=== PATIENT | female | born 1955 | race African-American/Black ===

== ENCOUNTER → 2017-09-16 | Outpatient (CLI) | payer MEDICARE, OTHER ==
[2017-09-16 12:01] LABS: ADD MAN DIFF? NO
[2017-09-16 12:05] LABS: BASO # 0.1 x10^3/uL (0.0-0.2); BASO % 1 % (0-3); EOS # 0.1 x10^3/uL (0.0-0.7); EOS % 2 % (0-3); HEMATOCRIT 39.3 % (36.0-47.0); HEMOGLOBIN 13.3 g/dL (12.0-15.5); LYMPH # 2.2 x10^3/uL (1.0-4.8); LYMPH % 49 % (24-48); MEAN CORPUSCULAR HEMOGLOBIN 28 pg (25-35); MEAN CORPUSCULAR HGB CONC 34 g/dL (31-37); MEAN CORPUSCULAR VOLUME 81 fL (79-100); MONO # 0.4 x10^3/uL (0.0-1.1); MONO % 8 % (0-9); NEUT # 1.9 x10^3uL (1.8-7.7); NEUT % 41 % (31-73); PLATELET COUNT 286 x10^3/uL (140-400); RED BLOOD COUNT 4.83 x10^6/uL (3.50-5.40); RED CELL DISTRIBUTION WIDTH 14.2 % (11.5-14.5); WHITE BLOOD COUNT 4.6 x10^3/uL (4.0-11.0)
[2017-09-16 12:14] LABS: ALBUMIN 3.6 g/dL (3.4-5.0); ANION GAP 8 (6-14); BLOOD UREA NITROGEN 11 mg/dL (7-20); CALCIUM 8.9 mg/dL (8.5-10.1); CARBON DIOXIDE 28 mmol/L (21-32); CHLORIDE 105 mmol/L (98-107); CREATININE 0.9 mg/dL (0.6-1.0); GFR 77.5; GLUCOSE 131 mg/dL (70-99); SODIUM 141 mmol/L (136-145)
== END | disposition home or self-care (01) ==
LOC: SURGPAT 10:52
DX: Z01.818 Encounter for other preprocedural examination (principal)
CPT/HCPCS: 36415; 80048; 82040; 85025

== ENCOUNTER → 2017-09-20 | Day surgery (SDC) | payer MEDICARE, OTHER ==
[~2017-09-20] MED LIST: DEXAMETHASONE SOD PHOS 20 MG/5 ML VIAL.; GLYCOPYRROLATE 1 MG/5 ML VIAL.; LIDOCAINE 1% PF 2 ML VIAL. ID; LIDOCAINE 2% PF Vial for OR 5 ML VIAL.; NEOSTIGMINE METHYLSULFATE 5 MG/5 ML SYRINGE.; ONDANSETRON PF 4 MG/2 ML VIAL.; ONDANSETRON PF 4 MG/2 ML VIAL. IV; PROCHLORPERAZINE 10 MG/2 ML VIAL. IV; PROPOFOL 20 ML IV; ROCURONIUM 50 MG/5 ML VIAL.; fentaNYL PF VIAL 100 MCG/2 ML VIAL; fentaNYL PF VIAL 100 MCG/2 ML VIAL IV
[2017-09-20] MEDS: IV RINGERS,LACTATED 1000ML 1,000 ML IV ×2 (09:35→12:03)
[2017-09-20 09:46] LABS: POC GLUCOSE 119 mg/dL (70-99)
[2017-09-20] MEDS: BUPIVACAINE-EPI 0.25%-1:200000 50 ML VIAL. (11:12)
[2017-09-20] MEDS: fentaNYL PF VIAL 100 MCG/2 ML VIAL IV (12:04)
[2017-09-20] MEDS: oxyCODONE/APAP 5/325 1 TAB TABLET PO (12:50)
== END | disposition home or self-care (01) ==
LOC: SURG 08:01
DX: K43.0 Incisional hernia with obstruction, without gangrene (principal); I10 Essential (primary) hypertension; G47.30 Sleep apnea, unspecified; Z87.19 Personal history of other diseases of the digestive system; E66.9 Obesity, unspecified; Z68.35 Body mass index [BMI] 35.0-35.9, adult; K21.9 Gastro-esophageal reflux disease without esophagitis; E11.9 Type 2 diabetes mellitus without complications; F41.9 Anxiety disorder, unspecified; F32.9 Major depressive disorder, single episode, unspecified; Z98.51 Tubal ligation status; M79.7 Fibromyalgia; M19.90 Unspecified osteoarthritis, unspecified site; Z98.890 Other specified postprocedural states; Z90.49 Acquired absence of other specified parts of digestive tract; Z96.652 Presence of left artificial knee joint; Z87.891 Personal history of nicotine dependence; D64.9 Anemia, unspecified; Z88.5 Allergy status to narcotic agent; Z98.1 Arthrodesis status; Z80.3 Family history of malignant neoplasm of breast; Z83.3 Family history of diabetes mellitus; Z82.49 Family history of ischemic heart disease and other diseases of the circulatory system; Z79.84 Long term (current) use of oral hypoglycemic drugs; Z79.899 Other long term (current) drug therapy
CPT/HCPCS: 49561; 82962; 88302; J0690; J1100; J2405; J2704; J2710; J3010; J3490

== ENCOUNTER → 2020-01-12 | Outpatient (CLI) | payer MEDICARE, OTHER ==
[2017-09-20 13:57] VITALS: BP 130/75
[~2020-01-12] MED LIST changes: +AMIT10TA PO; +AMIT50TA PO; +BENA40TA15 PO; +CHOL500050 PO; -DEXAMETHASONE SOD PHOS 20 MG/5 ML VIAL.; +DOCU50CA9 PO; -GLYCOPYRROLATE 1 MG/5 ML VIAL.; -LIDOCAINE 1% PF 2 ML VIAL. ID; -LIDOCAINE 2% PF Vial for OR 5 ML VIAL.; +METF-658 PO; +METO-247 PO; +METO25TA2 PO; -NEOSTIGMINE METHYLSULFATE 5 MG/5 ML SYRINGE.; -ONDANSETRON PF 4 MG/2 ML VIAL.; -ONDANSETRON PF 4 MG/2 ML VIAL. IV; +OXYC1TAB15 PO; +PANT20TA2 PO; +PANT40TA77 PO; +PARO40TA61 PO; -PROCHLORPERAZINE 10 MG/2 ML VIAL. IV; -PROPOFOL 20 ML IV; -ROCURONIUM 50 MG/5 ML VIAL.; +TRIA80OI TP; +VENL75CA PO; -fentaNYL PF VIAL 100 MCG/2 ML VIAL; -fentaNYL PF VIAL 100 MCG/2 ML VIAL IV
--- NOTE | 2020-01-12 14:06 | EKG ---
[facility] [address] [place] [address] Test Date: 2020-01-12 Test Time: 14:00:52 Pat Name: SHRUTHI RAGSDALE Department: Room: Gender: F Box Icer: JOHN Lee : 1955 Requested By: JOHN HUNT Order Number: [id number] Reading MD: Duke Ayers MD Measurements Intervals Elida Rate: 70 P: 28 LA: 174 QRS: -34 QRSD: 98 T: 36 QT: 404 QTc: 439 Interpretive Statements SINUS RHYTHM ABNORMAL LEFT AXIS DEVIATION LAFB Electronically Signed On 01-16-2020 11:04:11 CDT by Duke Ayers MD
[2020-01-12 14:08] LABS: BASO # 0.1 x10^3/uL (0.0-0.2); BASO % 1 % (0-3); EOS # 0.1 x10^3/uL (0.0-0.7); EOS % 2 % (0-3); HEMATOCRIT 38.4 % (36.0-47.0); LYMPH # 2.4 x10^3/uL (1.0-4.8); LYMPH % 48 % (24-48); MEAN CORPUSCULAR HEMOGLOBIN 28 pg (25-35); MEAN CORPUSCULAR HGB CONC 34 g/dL (31-37); MEAN CORPUSCULAR VOLUME 82 fL (79-100); MONO # 0.4 x10^3/uL (0.0-1.1); MONO % 7 % (0-9); NEUT # 2.2 x10^3/uL (1.8-7.7); NEUT % 42 % (31-73); PLATELET COUNT 300 x10^3/uL (140-400); RED BLOOD COUNT 4.69 x10^6/uL (3.50-5.40); RED CELL DISTRIBUTION WIDTH 13.6 % (11.5-14.5); WHITE BLOOD COUNT 5.1 x10^3/uL (4.0-11.0)
[2020-01-12 14:42] LABS: BILIRUBIN,URINE NEGATIVE (NEG); COLOR,URINE RED; NITRITE,URINE NEGATIVE (NEG); PROTEIN,URINE NEGATIVE (NEG-TRACE)
[2020-01-12 14:46] LABS: ALBUMIN 3.4 g/dL (3.4-5.0); ALBUMIN/GLOBULIN RATIO 0.8 (1.0-1.7); CALCIUM 8.3 mg/dL (8.5-10.1); POTASSIUM 4.2 mmol/L (3.5-5.1); TOTAL BILIRUBIN 0.4 mg/dL (0.2-1.0); TOTAL PROTEIN 7.8 g/dL (6.4-8.2)
[2020-01-12 15:15] LABS: CLARITY,URINE HAZY
[2020-01-12 15:16] LABS: RBC,URINE TNTC /HPF (0-2); SQUAMOUS EPITHELIAL CELL,UR MOD /LPF
[2020-01-12 15:17] LABS: BACTERIA,URINE FEW /HPF (0-FEW); WBC,URINE RARE /HPF (0-4)
--- NOTE | 2020-01-12 16:39 | RAD ---
EXAM: CHEST PA LATERAL INDICATION: Reason: PRE OP HYSTERECTOMY ON 01/18/20, HX HTN, DIABETES / Spl. Instructions: / History: . TECHNIQUE: PA and lateral views COMPARISON: None FINDINGS: The heart size is normal. The great vessels appear unremarkable. There is no hilar or mediastinal mass. The lungs are clear. There is no pleural effusion or pneumothorax. ACDF surgical changes in the lower cervical spine are incidentally noted. There are no acute or aggressive osseous abnormalities. IMPRESSION: No active cardiopulmonary disease. Electronically signed by: Uziel Leone MD (01/12/2020 4:36 PM) [id number]
== END ==
LOC: SURGPAT 12:50
PROVIDERS: ATTEND Obstetrics & Gynecology
DX: Z01.812 Encounter for preprocedural laboratory examination (principal); I10 Essential (primary) hypertension; E11.9 Type 2 diabetes mellitus without complications; R94.31 Abnormal electrocardiogram [ECG] [EKG]; Z20.828 Contact with and (suspected) exposure to other viral communicable diseases
CPT/HCPCS: 71046; 80053; 81001; 85025; 87086; 93005; U0003

== ENCOUNTER 2020-01-18 06:10 | Observation (INO) | payer MEDICARE, OTHER ==
[2020-01-18] VITALS (8 sets, daily range): BP systolic 114–183; BP diastolic 59–92
[~2020-01-18] VITALS: Ht 162.6 cm; Wt 97.0 kg
[2020-01-18] MEDS ORDERED: PROCHLORPERAZINE 10 MG/2 ML VIAL. IV PRN (07:00)
[2020-01-18] MEDS ORDERED: IV RINGERS,LACTATED 1000ML 1,000 ML IV SCH (07:00)
[2020-01-18] MEDS ORDERED: fentaNYL PF VIAL 100 MCG/2 ML VIAL IV PRN (07:00)
[2020-01-18] MEDS ORDERED: ONDANSETRON PF 4 MG/2 ML VIAL. IV PRN ×2 (07:00→11:45)
[2020-01-18] MEDS: INSULIN LISPRO 100 UNIT/ML 3ML VIAL for OP,RR ONLY. SQ PRN ×2 (07:14→11:47)
[2020-01-18] MEDS ORDERED: INDIGOTINDISULFONATE SODIUM 40 MG/5 ML AMPUL. ONE (08:04)
[2020-01-18] MEDS ORDERED: BUPIVACAINE-EPI 0.5%-1:200000 MPF 30 ML VIAL. ONE (08:04)
[2020-01-18] MEDS ORDERED: ESTROGENS, CONJ VAGINAL CREAM 30GM TUBE. ONE (08:04)
[2020-01-18] MEDS ORDERED: NEOSTIGMINE METHYLSULFATE 5 MG/5 ML SYRINGE. ONE (08:13)
[2020-01-18] MEDS ORDERED: MIDAZOLAM HCL/PF 2 MG/2 ML VIAL. ONE (08:13)
[2020-01-18] MEDS ORDERED: fentaNYL PF VIAL 100 MCG/2 ML VIAL ONE ×3 (08:13→11:51)
[2020-01-18] MEDS ORDERED: DEXAMETHASONE SOD PHOS 4 MG/ML VIAL ONE (08:13)
[2020-01-18] MEDS ORDERED: SEVOFLURANE > 120 MINUTES. IH ONE (08:13)
[2020-01-18] MEDS ORDERED: PROPOFOL 10 MG/ML (20ML) VIAL. IV ONE (08:13)
[2020-01-18] MEDS ORDERED: GLYCOPYRROLATE 1 MG/5 ML VIAL. ONE (08:13)
[2020-01-18] MEDS ORDERED: ROCURONIUM 50 MG/5 ML VIAL. ONE (08:13)
[2020-01-18] MEDS ORDERED: ONDANSETRON PF 4 MG/2 ML VIAL. ONE (08:14)
[2020-01-18] MEDS ORDERED: LIDOCAINE 2% PF 5 ML VIAL. ONE (08:14)
[2020-01-18] MEDS ORDERED: ePHEDrine PF IN SALINE 50 MG/10 ML SYRINGE. IV ONE (09:06)
[2020-01-18] MEDS ORDERED: ESMOLOL 100 MG/10 ML VIAL. IVP ONE (09:38)
[2020-01-18] MEDS ORDERED: PHENYLEPHRINE in 0.9% NACL PF 1 MG/10 ML SYRINGE. IV ONE (10:28)
--- NOTE | 2020-01-18 11:39 | PDOC ---
BRIEF OPERATIVE NOTE Date: Jan 18, 2020 Pre-Op Diagnosis complex endometrial hyperplasia with atypia Post-Op Diagnosis same Procedure Performed LAVH/LSO/lysis of adhesions Surgeon Dr. Giselle Rubin Junior Accountant MICHAEL Velarde Anesthesiologist Dr. Casas Anesthesia Type: General Blood Loss 200cc IV Fluid 1L Urine Output 260cc clear via guillaume Specimens Obtained cervix, uterus, left tube and ovary Findings abdominopelvic adhesions; midline and bilateral sidewalls, some left anterior abdominal wall and near the right tube and ovary normal appendix seen mildly enlarged uterus, normal left tube and ovary normal right ovary but adhesed to side wall and right tube stuck to bowel Complications none Operative Note [id number] GISELLE RUBIN MD Jan 18, 2020 11:38
[2020-01-18] MEDS ORDERED: NALOXONE 0.4 MG/ML VIAL. IV PRN (11:45)
[2020-01-18] MEDS ORDERED: MAGNESIUM HYDROXIDE 2,400 MG/30 ML ORAL.SUSP. PO PRN (11:45)
[2020-01-18] MEDS ORDERED: 0.9 % SODIUM CHLORIDE 10 ML DISP.SYRIN. IV PRN (11:45)
[2020-01-18] MEDS ORDERED: MAG HYDROX/ALUMINUM HYD/SIMETH 30 ML ORAL.SUSP PO PRN (11:45)
[2020-01-18] MEDS ORDERED: diphenhydrAMINE HCL 25 MG CAPSULE PO PRN (11:45)
[2020-01-18] MEDS ORDERED: diphenhydrAMINE 50 MG/ML VIAL IV PRN (11:45)
[2020-01-18] MEDS ORDERED: ZOLPIDEM 5 MG TABLET. PO PRN (11:45)
[2020-01-18] MEDS ORDERED: LACTULOSE 20 GM/30 ML SOLUTION. PO PRN (11:45)
[2020-01-18] MEDS ORDERED: MORPHINE SULFATE 2 MG/ML VIAL. IV PRN (11:45)
[2020-01-18] MEDS ORDERED: SIMETHICONE 80 MG TAB.CHEW PO PRN (11:45)
[2020-01-18] MEDS ORDERED: CALCIUM CARBONATE 500 MG TAB.CHEW PO PRN (11:45)
[2020-01-18] MEDS: fentaNYL PF VIAL 100 MCG/2 ML VIAL IV PRN ×2 (11:53→12:04)
[2020-01-18] MEDS ORDERED: INSULIN LISPRO 100 UNIT/ML 3ML VIAL for OP,RR ONLY. SQ ONE ×2 (12:00)
[2020-01-18 12:08] LABS: HEMATOCRIT 36.1 % (36.0-47.0); HEMOGLOBIN 12.1 g/dL (12.0-15.5); RED BLOOD COUNT 4.36 x10^6/uL (3.50-5.40); RED CELL DISTRIBUTION WIDTH 13.6 % (11.5-14.5); WHITE BLOOD COUNT 10.7 x10^3/uL (4.0-11.0)
--- NOTE | 2020-01-18 13:05 | OP ---
DATE OF SURGERY: 01/18/2020 PREOPERATIVE DIAGNOSIS: Complex atypical endometrial hyperplasia with atypia seen on recent dilatation and curettage done for postmenopausal bleeding. POSTOPERATIVE DIAGNOSES: Complex atypical endometrial hyperplasia with atypia seen on recent dilatation and curettage done for postmenopausal bleeding plus abdominal pelvic adhesive disease. PROCEDURE: Laparoscopic-assisted vaginal hysterectomy, left salpingo-oophorectomy, and lysis of adhesions. SURGEON: John Rubin MD. DOORSHAKER: MICHAEL Velarde. ANESTHESIOLOGIST: Ja Casas MD. ANESTHESIA: General. BLOOD LOSS: 200 mL. URINE OUTPUT: 260 mL clear via Evans catheter. IV FLUIDS: 1 liter of Crystalloid. SPECIMENS: Cervix, uterus, left tube and ovary. FINDINGS: She had adhesions scattered throughout the abdomen, especially upper abdomen over her vertical midline but she actually had them on both sidewalls as well as the left anterior abdominal wall and the right tube and ovary were adhesed not just to the pelvic sidewall, but the tube was strongly adhesed to the bowel near the appendix. The uterus itself was mildly enlarged. Normal left tube and ovary. Normal appearing right ovary, just adhesed, but it was the tube that was worse on the ovary as far as the adhesions. COMPLICATIONS: None. DESCRIPTION OF PROCEDURE: This patient was taken to the operating room where general anesthesia was placed. The patient was placed in dorsal lithotomy position in Corbin stirrups. The patient's abdomen and vagina were both prepped and draped in the normal sterile fashion and a Evans catheter had been inserted under sterile technique. Upon my arrival, a timeout was performed. Once we agreed on the patient, the site, the procedure, the antibiotics, the procedure was initiated. A bivalve speculum was placed in the patient's vagina. A single-tooth tenaculum was used to grasp the anterior lip of the cervix. A 10 mL of 0.5% Marcaine with epinephrine was used to circumferentially inject around the cervix for both hemodissection and hemostatic purposes. The ValtchJoome uterine manipulator was placed through the endocervical os, locked on the single tooth tenaculum and the bivalve speculum was then removed. Top gloves were discarded and changed. Attention was then turned to the abdomen. A left upper quadrant incision was made down from her left breast, a couple of centimeters below the angle of her ribs. A curved Abril was used to dissect through the subcuticular layer to the fascia. The 5 mm Visiport was used directly enter the abdominal cavity. Opening patient pressure was 8 mmHg. Immediately to my right, I could see omental adhesions to the anterior abdominal wall. To the left, it looked clear. We were able to insufflate. We did raise the pressure to 16 or 17 to get at least some air since her opening pressure was 8-10 and her abdominal wall was so heavy and we did not get a lot of insufflation with 15, so we did increase it slightly, put her in Trendelenburg, I was able to see. The right lower quadrant was clear and transilluminate, so I got a port in there, transilluminated the abdominal wall, found an area clear of any vasculature and placed it in. I moved the camera, I was able to look at the left upper quadrant, we were lateral to the adhesions, thankfully in the midline. She had a little adhesion that was easily taken down with the LigaSure that was just omental to the left anterior abdominal wall that I could take it down and get a left lower quadrant port in as well. So once that was taken down with the LigaSure, we could see a clear filmy area between the abdominal wall and the adhesions. I took it down, it went down, we went just lateral since I was on the left upper quadrant, so I could see with the camera, so we went a little more lateral with the left lower quadrant, transilluminated the abdominal wall, found an area clear of any vasculature and put it in under direct visualization as well. A 3-4 mL of air was placed in all the trocar cuff. Once this was done, we were able to see the left tube and ovary. We found the ureter coursing very low in the pelvis, very easily identified on this side. So, staying high on the infundibulopelvic ligament just below the ovary well above the ureter, it was cauterized and cut taking it over the uterus, crossing the left round ligament and going down and staying right on the uterus, getting ready to go down and start that bladder flap. So the left side was easily done. In the right side, the cornua was easily identified. The right round ligament was identified. The right tube could be identified coming out of the uterus but it dove into the bowel. When I found the ovary, the ovary itself was normal, but it was adhesed to the sidewall and just the fimbria were stuck to it. The rest of the tube was stuck up and in the bowel. So at this point, I decided to get the round ligament on the right side, cauterized and cut it and then I crossed the uteroovarian pedicle on the right side and left it, so I could get the uterus out and go back and look at the ovary, so I crossed the right uteroovarian pedicle, the right tube and the right round, cauterizing and cutting with the LigaSure. Once this was done, the uterine vessels were obtained on this side as well. The bladder flap was created sharply, elevating it in front and using the monopolar hook to score it and pull it down easily. The bladder flap was created very nicely, then going down on the left side to the uterosacral and I did not get quite as well on the right side as this is where a lot of the distorted tissue was being pulled with the adhesions, but I was able to get the right uteroovarian pedicle, the right tube, the right round and then the vessels on the right side and the uterus was completely blanched. I was able to elevate the uterus and find some old endometriosis and scarring under the uterus and on the uterosacrals but it was clear and there were no adhesions on the posterior part of the uterus. So once the left side was taken all the way down to the uterosacrals and the uterus was free and blanched, we went below to do the vaginal hysterectomy part. So, all instruments were removed from the abdomen and attention was turned vaginally. The single tooth and Valtchev were removed. A weighted speculum was placed in the patient's vagina. Thyroid Haritha clamps were placed on the anterior and posterior lips of the cervix respectively. Once this was done, a scalpel was used to make a circumferential incision in the cervix. The cervix was elevated. The posterior cul-de-sac was sharply entered with curved Mayos and pickups with teeth and the filmy area just below posterior to the cervix. A #0 Vicryl stitch was used to secure the posterior peritoneum to the vaginal cuff. It was tagged with a curved Abril clamp. The needle was cut and passed off. The short weighted speculum was removed and replaced with the long weighted Melinda speculum in the posterior cul-de-sac. At this point, attention was turned to the anterior bladder peritoneum. It was gently teased off using the Yankauer suction tip to push up and the sharp scalpel to gently tease it up off the cervix and then an open Ray-Ree 4 x 4 was used to gently push up the anterior bladder peritoneum and the anterior cul-de-sac was digitally and bluntly entered easily and it slid up. The curved Elm Mott was placed here. At this point, curved Asim clamps x 2 were placed on the patient's left uterosacral ligament where they were doubly clamped with curved Heaneys, cut with Norwood scissors and suture ligated x 2 with 0 Vicryl. Second one was taken through the vaginal cuff securing uterosacral ligament to the vaginal cuff. It was tagged with a straight Abril clamp and the needle was cut and passed off. At this point, the right uterosacral ligaments were doubly clamped with curved Heaneys, cut with curved Norwood scissors and suture ligated x 2 with #0 Vicryl. Again, the second one was taken through the vaginal cuff securing uterosacral ligament to the vaginal cuff, tagged with a straight Abril clamp and the needle was cut and passed off. The remaining pedicle on both sides were delineated with the curved mixture and the vaginal LigaSure was used to cauterize and cut the remaining pedicles. I started on the patient's left side. It was easily taken around it, cauterized and cut. I took my finger and was able to make sure that the entire left side was free. Now on the right side, same thing, I took the mixture around the remaining pedicle, used the vaginal LigaSure to cauterize and cut. Cervix, uterus, left tube and ovary were delivered in total and passed off for permanent pathology. There were a few clots sucked out of the posterior cul-de-sac at this point. The pedicles did appear to be hemostatic and dry. The long Melinda speculum was removed and replaced with the short weighted vaginal speculum. A sponge stick was used to examine the pedicles. They did appear to be dry. A long Allis was used to go on the anterior bladder peritoneum. A full length 2-0 Vicryl was used to close the peritoneum going through the anterior bladder peritoneum, left uterosacral ligament, posterior peritoneum and right uterosacral ligament, thus closing the peritoneum in a pursestring like fashion. Once this was done, the right and left uterosacral tags were clipped as well. A full length 2-0 Vicryl was obtained and the cuff was closed in an anterior to posterior running locked fashion and tied to the posterior cuff tag. A few interrupted stitches were placed for hemostasis. The tissue was just friable, atrophic and almost just looked like wherever you touched it looked raw even from the speculums and everything. So, I did put vaginal packing with Premarin cream in once the cuff was closed. At this point, all instruments below had been correct count x 2 by OR personnel. All gloves were discarded and changed and attention was turned back above for a second look. Gas was reinsufflated. She was placed back in Trendelenburg. Overhead lights were turned off and we reexamined. The cul-de-sac was dry. It did appear that maybe over by that right tube and ovary where they were stuck and originally I tried to pull up that fimbria and realized that the tube was stuck in the bowel and we left it but there had been some bleeding but it clotted off but we looked over there very well and it was dry. I put Tisseel over after irrigation and the right and left pericolic gutters were clear. I could now even clearly see the appendix on the right side after examining that tube over there and it looked normal and not inflamed. The vaginal cuff looked good and the left pedicle where the tube and ovary were gone, so I put Tisseel over all of that and then I obtained Di and put it over where the right tube and ovary were stuck near the bowel and just over the right side in general where there were more adhesions and that stayed white and powdery without any evidence of bleeding. Once this was done ____ watched the right lower quadrant and left lower quadrant ports come out. They were deflated from the 4-5 mL of air and removed under direct visualization. Gas was released from the left upper quadrant port. Gas was taken out of this trocar and it was also removed. All 3 port sites were closed with 4-0 nylon and injected with local at the end. The patient was awakened from anesthesia and brought to recovery room in stable condition. JOHN RUBIN MD DR: Tigre JOB#: [id number] / [id number]
[2020-01-18] MEDS: oxyCODONE/APAP 5/325 1 TAB TABLET PO PRN ×2 (15:30→21:50)
[2020-01-18] MEDS ORDERED: LISINOPRIL 20 MG TABLET PO ONE (23:00)
[2020-01-18] MEDS ORDERED: metFORMIN XR 500 MG TAB.ER.24H PO ONE (23:00)
[2020-01-18] MEDS ORDERED: METOPROLOL SUCC 24HR ER 100 MG TAB.ER.24H. PO ONE (23:00)
[2020-01-19] MEDS: HYDROcodone/APAP 5/325MG 1 TAB TABLET PO PRN ×4 (02:44→15:27)
--- NOTE | 2020-01-19 06:30 | NUR ---
Discontinued Evans catheter and removed packing per MD order, Patient tolerated procedure well.
[2020-01-19 06:32] VITALS: BP 102/53
[2020-01-19] MEDS ORDERED: metFORMIN XR 500 MG TAB.ER.24H PO SCH (08:00)
[2020-01-19 08:11] LABS: CALCIUM 8.1 mg/dL (8.5-10.1); CREATININE 0.8 mg/dL (0.6-1.0); GFR 87.9; POTASSIUM 4.9 mmol/L (3.5-5.1)
[2020-01-19 08:57] VITALS: BP 95/57
[2020-01-19] MEDS ORDERED: LISINOPRIL 20 MG TABLET PO SCH (09:00)
[2020-01-19] MEDS ORDERED: METOPROLOL SUCC 24HR ER 100 MG TAB.ER.24H. PO SCH (09:00)
--- NOTE | 2020-01-19 09:02 | PDOC ---
SURGICAL PROGRESS NOTE DATE: 01/19/20 TIME: 08:45 Subjective Doing well without complaints. No n/v and tolerating regular diet. tolerating PO pain meds Vital Signs Vital Signs Date Time Temp Pulse Resp B/P (MAP) Pulse Ox O2 Delivery O2 Flow Rate FiO2 01/19/20 06:32 98.3 87 20 102/53 (69) 96 Room Air 98.3 01/19/20 03:45 2.0 I&O Intake and Output 01/19/20 07:00 Intake Total 4410 ml Output Total 2545 ml Balance 1865 ml Intake Oral 960 ml IV Total 3450 ml Output Urine Total 2345 ml Estimated Blood Loss 200 ml PATIENT HAS A GUILLAUME: No General: Alert, Oriented X3, Cooperative, No acute distress HEENT: Atraumatic Abdomen: Soft, No tenderness, Other (all port sites c/d/i) Extremities: No clubbing, No cyanosis, No edema, No tenderness/swelling Skin: No rashes, No breakdown Neuro: Normal speech Psych/Mental Status: Mental status NL, Mood NL Labs Laboratory Tests Test 01/18/20 06:54 01/18/20 11:42 01/18/20 12:00 01/19/20 05:42 Glucose (Fingerstick) 154 mg/dL (70-99) 177 mg/dL (70-99) 148 mg/dL (70-99) White Blood Count 10.7 x10^3/uL (4.0-11.0) Red Blood Count 4.36 x10^6/uL (3.50-5.40) Hemoglobin 12.1 g/dL (12.0-15.5) Hematocrit 36.1 % (36.0-47.0) Mean Corpuscular Volume 83 fL (79-100) Mean Corpuscular Hemoglobin 28 pg (25-35) Mean Corpuscular Hemoglobin Concent 34 g/dL (31-37) Red Cell Distribution Width 13.6 % (11.5-14.5) Platelet Count 256 x10^3/uL (140-400) Test 01/19/20 06:00 01/19/20 06:25 Hematocrit 31.9 % (36.0-47.0) Sodium Level 136 mmol/L (136-145) Potassium Level 4.9 mmol/L (3.5-5.1) Chloride Level 102 mmol/L (98-107) Carbon Dioxide Level 29 mmol/L (21-32) Anion Gap 5 (6-14) Blood Urea Nitrogen 10 mg/dL (7-20) Creatinine 0.8 mg/dL (0.6-1.0) Estimated GFR (Cockcroft-Gault) 87.9 Glucose Level 140 mg/dL (70-99) Calcium Level 8.1 mg/dL (8.5-10.1) Glucose (Fingerstick) 127 mg/dL (70-99) Laboratory Tests Test 01/18/20 11:42 01/18/20 12:00 01/19/20 05:42 01/19/20 06:00 Glucose (Fingerstick) 177 mg/dL (70-99) 148 mg/dL (70-99) White Blood Count 10.7 x10^3/uL (4.0-11.0) Red Blood Count 4.36 x10^6/uL (3.50-5.40) Hemoglobin 12.1 g/dL (12.0-15.5) Hematocrit 36.1 % (36.0-47.0) 31.9 % (36.0-47.0) Mean Corpuscular Volume 83 fL (79-100) Mean Corpuscular Hemoglobin 28 pg (25-35) Mean Corpuscular Hemoglobin Concent 34 g/dL (31-37) Red Cell Distribution Width 13.6 % (11.5-14.5) Platelet Count 256 x10^3/uL (140-400) Sodium Level 136 mmol/L (136-145) Potassium Level 4.9 mmol/L (3.5-5.1) Chloride Level 102 mmol/L (98-107) Carbon Dioxide Level 29 mmol/L (21-32) Anion Gap 5 (6-14) Blood Urea Nitrogen 10 mg/dL (7-20) Creatinine 0.8 mg/dL (0.6-1.0) Estimated GFR (Cockcroft-Gault) 87.9 Glucose Level 140 mg/dL (70-99) Calcium Level 8.1 mg/dL (8.5-10.1) Test 01/19/20 06:25 Glucose (Fingerstick) 127 mg/dL (70-99) I have reviewed the following labs, vitals, nursing Cardiovascular: HTN Psych: Anxiety, Other (sleeping problems) Problem List complex endometrial hyperplasia Assessment/Plan POD#1 s/p LAVH/LSO/lysis of adhesions Routine pO care d/c to home later today just waiting for pt to void since guillaume and vag packing just pulled a few hours ago this am wrote norco for pain med at home ok for otc ibuprofen if can take that at home too NPV x 6 weeks light/limited activity x [address] x 1 week or as long as taking narcotic pain meds keep scheduled follow up with me call or return sooner for any other questions or concerns not limited to but including pain unrelieved with pain meds, increased or unexplained vaginal bleeding or T>100.4 Justicifation of Admission Dx: Justifications for Admission: Justification of Admission Dx: Yes Comments: postop JOHN HUNT MD Jan 19, 2020 09:02
--- NOTE | 2020-01-19 09:06 | PDOC3 ---
Discharge Summary Visit Information Date of Admission: Jan 18, 2020 Date of Discharge: Jan 19, 2020 Final Diagnosis complex atypical endometrial hyperplasia with atypia Brief Hospital Course Allergies Allergies Coded Allergies Type Severity Reaction Last Updated Verified codeine Allergy Intermediate Nausea 01/12/20 Yes Vital Signs Vital Signs Date Time Temp Pulse Resp B/P (MAP) Pulse Ox O2 Delivery O2 Flow Rate FiO2 01/19/20 06:32 98.3 87 20 102/53 (69) 96 Room Air 98.3 01/19/20 03:45 2.0 Lab Results Laboratory Tests Test 01/18/20 06:54 01/18/20 11:42 01/18/20 12:00 01/19/20 05:42 Glucose (Fingerstick) 154 mg/dL (70-99) 177 mg/dL (70-99) 148 mg/dL (70-99) White Blood Count 10.7 x10^3/uL (4.0-11.0) Red Blood Count 4.36 x10^6/uL (3.50-5.40) Hemoglobin 12.1 g/dL (12.0-15.5) Hematocrit 36.1 % (36.0-47.0) Mean Corpuscular Volume 83 fL (79-100) Mean Corpuscular Hemoglobin 28 pg (25-35) Mean Corpuscular Hemoglobin Concent 34 g/dL (31-37) Red Cell Distribution Width 13.6 % (11.5-14.5) Platelet Count 256 x10^3/uL (140-400) Test 01/19/20 06:00 01/19/20 06:25 Hematocrit 31.9 % (36.0-47.0) Sodium Level 136 mmol/L (136-145) Potassium Level 4.9 mmol/L (3.5-5.1) Chloride Level 102 mmol/L (98-107) Carbon Dioxide Level 29 mmol/L (21-32) Anion Gap 5 (6-14) Blood Urea Nitrogen 10 mg/dL (7-20) Creatinine 0.8 mg/dL (0.6-1.0) Estimated GFR (Cockcroft-Gault) 87.9 Glucose Level 140 mg/dL (70-99) Calcium Level 8.1 mg/dL (8.5-10.1) Glucose (Fingerstick) 127 mg/dL (70-99) Laboratory Tests Test 01/18/20 11:42 01/18/20 12:00 01/19/20 05:42 01/19/20 06:00 Glucose (Fingerstick) 177 mg/dL (70-99) 148 mg/dL (70-99) White Blood Count 10.7 x10^3/uL (4.0-11.0) Red Blood Count 4.36 x10^6/uL (3.50-5.40) Hemoglobin 12.1 g/dL (12.0-15.5) Hematocrit 36.1 % (36.0-47.0) 31.9 % (36.0-47.0) Mean Corpuscular Volume 83 fL (79-100) Mean Corpuscular Hemoglobin 28 pg (25-35) Mean Corpuscular Hemoglobin Concent 34 g/dL (31-37) Red Cell Distribution Width 13.6 % (11.5-14.5) Platelet Count 256 x10^3/uL (140-400) Sodium Level 136 mmol/L (136-145) Potassium Level 4.9 mmol/L (3.5-5.1) Chloride Level 102 mmol/L (98-107) Carbon Dioxide Level 29 mmol/L (21-32) Anion Gap 5 (6-14) Blood Urea Nitrogen 10 mg/dL (7-20) Creatinine 0.8 mg/dL (0.6-1.0) Estimated GFR (Cockcroft-Gault) 87.9 Glucose Level 140 mg/dL (70-99) Calcium Level 8.1 mg/dL (8.5-10.1) Test 01/19/20 06:25 Glucose (Fingerstick) 127 mg/dL (70-99) Brief Hospital Course Ms. Ng is a 64 old female who presented with abnormal tissue from recent D&C desiring definitive therapy. She has HTN and we restarted BP med last night . blood count stable, pt eating without n/v and guillaume pulled just has not voided yet since just pulled this am will dc to home later today Assessment Assessment POD#1 s/p LAVH/LSO/lysis of adhesions Routine pO care d/c to home later today just waiting for pt to void since guillaume and vag packing just pulled a few hours ago this am wrote norco for pain med at home ok for otc ibuprofen if can take that at home too NPV x 6 weeks light/limited activity x [address] x 1 week or as long as taking narcotic pain meds keep scheduled follow up with me call or return sooner for any other questions or concerns not limited to but including pain unrelieved with pain meds, increased or unexplained vaginal bleeding or T>100.4 Discharge Information Condition at Discharge: Stable Follow Up: Weeks Disposition/Orders: D/C to Home Scheduled Amitriptyline Hcl (Amitriptyline Hcl) 50 Mg Tablet, 50 MG PO DAILY for DEPRESSION, (Reported) Entered as Reported by: JENNIE LOPEZ on 01/12/20 1323 Benazepril Hcl (Lotensin) 40 Mg Tablet, 1 TAB PO DAILY, #30 Ref 5 (Reported) Entered as Reported by: STEPHON BEY on 06/29/14 1318 Last Taken: Unknown Dose on 01/16/20 Last Action: Converted on 01/18/201656 by JENNIFER LOCKE Docusate Sodium (Stool Softener) 50 Mg Capsule, 50 MG PO BID, (Reported) as needed while taking percocet to avoid constipation Entered as Reported by: MARYCARMEN JOY on 09/20/17 1318 Metformin Hcl (Metformin Hcl Er) 500 Mg Tab.er.24h, 1,000 MG PO DAILYWBKFT for ANTI-DIABETIC, Ref 0 (Reported) Entered as Reported by: OSIRIS DUNN on 09/16/17 1110 Last Action: Continued on 01/18/201656 by JENNIFER LOCKE Metoprolol Succinate (Metoprolol Succinate ( Xl )) 100 Mg Tab.er.24h, 100 MG PO DAILY for FOR HYPERTENSION, #30 Ref 0 (Reported) Entered as Reported by: JENNIE LOPEZ on 01/12/20 1324 Last Taken: Unknown Dose on 01/16/20 Last Action: Continued on 01/18/201656 by JENNIFER LOCKE Pantoprazole Sodium (Pantoprazole Sodium ) 40 Mg Tablet.dr, 40 MG PO DAILYAC for GERD, (Reported) Entered as Reported by: JENNIE LOPEZ on 01/12/20 1325 Last Taken: Unknown Dose on 01/16/20 Last Action: Last Taken Edited on 01/18/20 0647 by JENNIE LOPEZ Paroxetine Hcl (Paxil) 40 Mg Tablet, 37.5 MG PO DAILY for ANXIETY, #30 Ref 1 (Reported) Entered as Reported by: OSIRIS DUNN on 09/16/17 1110 Triamcinolone Acetonide (Triamcinolone Acetonide) 80 Gm Oint...g., 80 GM TP PRN 1-2XD for PSORIASIS, (Reported) Entered as Reported by: JENNIE LOPEZ on 01/12/20 1327 Venlafaxine Hcl (Effexor Xr) 75 Mg Cap.er.24h, 1 CAP PO DAILY, #30 Ref 1 (Reported) Entered as Reported by: OSIRIS DUNN on 09/16/17 1110 Patient Instructions Patient Instructions POD#1 s/p LAVH/LSO/lysis of adhesions Routine pO care d/c to home later today just waiting for pt to void since guillaume and vag packing just pulled a few hours ago this am wrote norco for pain med at home ok for otc ibuprofen if can take that at home too NPV x 6 weeks light/limited activity x 2 weeks NO driving x 1 week or as long as taking narcotic pain meds keep scheduled follow up with me call or return sooner for any other questions or concerns not limited to but including pain unrelieved with pain meds, increased or unexplained vaginal bleeding or T>100.4 Justicifation of Admission Dx: Justifications for Admission: Justification of Admission Dx: Yes JOHN HUNT MD Jan 19, 2020 09:06
[2020-01-19 10:10] VITALS: BP 106/54
--- NOTE | 2020-01-19 12:36 | NUR ---
Pt attempted to void twice without success. Arina-bottle with warm water was used and water given while sitting on the toilet, however she was unable to void. She denied any sensation of feeling like she could go. Call placed to Dr. Rubin to inform.
[2020-01-19 13:30] VITALS: BP 110/43
--- NOTE | 2020-01-19 13:30 | NUR ---
Pt requested to use the bathroom after eating lunch. She was able to void 400cc without difficulty. Will monitor for another void.
[2020-01-19 15:30] VITALS: BP 148/60
--- NOTE | 2020-01-19 15:30 | NUR ---
Pt voided another 450cc without difficulty. Will page Dr. Rubin and confirm order to discharge.
--- NOTE | 2020-01-19 16:20 | NUR ---
Spoke with Dr. Rubin and received discharge order.
[2020-01-19 16:35] VITALS: BP 144/57
--- NOTE | 2020-01-19 17:25 | NUR ---
Discharge and follow up instructions reviewed and given to pt along with a Rx for [place]. Pt verbalized understanding and denied any questions or concerns at time of D/C. Pt taken out of the hospital per W/C with her and staff by her side.
--- NOTE | 2020-01-24 16:06 | PATHOLOGY ---
[facility] Accession Number: [id number] . 01 Material submitted: . uterus - UTERUS, CERVIX, LEFT TUBE AND OVARY. Modifiers: left . 01 Clinical history: . COMPLEX HYPERPLASIA WITH ATYPIA . 02 Diagnosis: Uterus and attached left fallopian tube and ovary, laparoscopic assisted vaginal hysterectomy with left salpingo-oophorectomy: - Residual complex endometrial hyperplasia with atypia, focal. - Mild chronic cervicitis with focal squamous metaplasia. - Few small Nabothian cysts. 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 - Adenomyosis, uterine corpus, sub-basal. - Congestion of fallopian tube. - Few small simple serous cysts of ovary. (JPM/db/mml; 01/23/2020) [facility] 01/24/2020 1030 Local . 02 Comment: The entire endometrium is submitted for histologic evaluation. Evaluation is somewhat hampered by the presence of autolytic changes. There is no definitive evidence of malignancy. The case is also examined by Dr. Art Zacarias and Dr. Vince Parks, both of whom have a specialty interest in gynecologic pathology. They concur with the diagnoses. . (JPM:mml; 01/24/2020) . 02 Electronically signed: . Hi Vale MD, Pathologist NPI- [id number] . 01 Gross description: . The specimen is received in formalin labeled "Anabell Ng, uterus, cervix, left tube, left ovary". Received is a 126 g, 9.4 x 6.1 x 4.7 cm uterus with attached cervix and attached left adnexa weighing 6 g. The uterine serosa is pink-preston and smooth in appearance. The 1.3 cm cervical os is surrounded by pale preston, smooth to disrupted ectocervical mucosa. The uterus is oriented using the peritoneal reflection and the anterior paracervical margin is inked black. The uterus is opened laterally to reveal a light preston endocervical canal measuring 3.0 cm in length. The endometrial cavity is triangular measuring 4.6 cm in length by 2.1 cm in width. The endometrium is pink-preston, glistening to slightly hemorrhagic in appearance and measures 0.1 cm in thickness. Serial sectioning reveals a preston-pink, trabeculated myometrium measuring up to 2.3 cm in thickness having a single intramural fibroid measuring 0.6 cm. . The left adnexa consists of a fimbriated fallopian tube measuring 2.1 cm in length by up to 0.5 cm in diameter attached to a 2.5 x 1.7 x 1.7 cm ovary. Sectioning through the fallopian tube reveals a pinpoint lumen and the fallopian tube appears grossly unremarkable. Sectioning through the ovary reveals pale preston, normal ovarian stroma. The entire endometrium and additional electronics parts sales representative sections are submitted as follows: . A1 12:00 cervix A2 6:00 cervix A3 full-thickness anterior endomyometrium A4-A7 remainder of anterior endomyometrium submitted from fundal to cervical aspects A8 full-thickness posterior endomyometrium A9-A13 remainder of posterior endomyometrium submitted from fundal to cervical aspects A14 intramural fibroid A15 left adnexa. (CAA; 01/20/2020) [facility] 01/23/2020 0941 Local . 02 Pathologist provided ICD-10: N85.02, N72, D25.1, N80.0 . 02 CPT . 450357 Specimen Comment: A courtesy copy of this report has been sent to [phone], [phone] Specimen Comment: [id number] Specimen Comment: Report sent to / DR CUEVA Performed at: 01 [facility] [address], [place], [place] [id number] MD Cheko Parker MD Phone: [phone] Performed at: 02 [facility] [address] [place], [place] [id number] MD Hi Vale MD Phone: [phone]
== END 2020-01-19 17:25 | disposition home or self-care (01) ==
LOC: SURG 06:10 → 3 NORTH 11:30
PROVIDERS: ADMIT Obstetrics & Gynecology; ATTEND Obstetrics & Gynecology
DX: N85.02 Endometrial intraepithelial neoplasia [EIN] (principal); K66.0 Peritoneal adhesions (postprocedural) (postinfection); I10 Essential (primary) hypertension; F41.9 Anxiety disorder, unspecified; Z79.899 Other long term (current) drug therapy
CPT/HCPCS: 36415; 58552; 80048; 82962; 85014; 85027; 86850; 86900; 86901; 96360; 96361; A7015; G0378; G0379; J0690; J1100; J1815; J2250; J2370; J2405; J2704; J2710; J3010; J3480; J3490; J7030; J7120; 88309

== ENCOUNTER 2020-08-27 17:19 | Emergency (ER) | payer MEDICARE, OTHER ==
[~2020-08-27] VITALS: Ht 162.6 cm; Wt 89.5 kg
--- NOTE | 2020-08-27 18:31 | PHYS DOC ---
Past Medical History Past Medical History: Diabetes-Type II, Hypertension, Pancreatitis Past Surgical History: Cholecystectomy, Hysterectomy, Knee Replacement Additional Past Surgical Histo: HIATAL & UMBIL HERNIA REPAIR, 3 SPINAL FUSIONS, CARPAL TUNNEL X 3 EACH HAND Smoking Status: Former Smoker Alcohol Use: None General Adult EDM: Chief Complaint: BLOOD SUGAR PROBLEM HPI: HPI: Patient is a 64 year old female with a past medical history of hypertension diabetes and pancreatitis. Patient states starting yesterday he has had epigastric pain that radiates to left flank. Pain as high as 7/10. Associated nausea vomiting and diarrhea. Review of Systems: Review of Systems: Review of systems: Constitutional symptoms- No fever, no chills. Eyes- No Discharge, No Visual Loss Respiratory symptoms- No shortness of breath, No wheezing, No Dyspnea on Exertion Cardiovascular Systems; No chest pain, No Palpitations, No syncope Gastrointestinal symptoms: Positive abdominal pain, Positive nausea, Positive vomiting Positive diarrhea. Genitourinary symptoms: No dysuria. Musculoskeletal symptoms: No back pain No extremity pain. NEUROLOGICAL Symptoms: No headache, no generalized weakness; No focal Weakness Heart Score: C/O Chest Pain: N/A Risk Factors: Risk Factors: DM, Current or recent (<one month) smoker, HTN, HLP, family history of CAD, obesity. Risk Scores: Score 0 - 3: 2.5% MACE over next 6 weeks - Discharge Home Score 4 - 6: 20.3% MACE over next 6 weeks - Admit for Clinical Observation Score 7 - 10: 72.7% MACE over next 6 weeks - Early Invasive Strategies Allergies: Allergies: Allergies Coded Allergies Type Severity Reaction Last Updated Verified codeine Allergy Intermediate Nausea 01/12/20 Yes Physical Exam: PE: General: alert, no acute distress. Skin: warm, dry and intact. Normal color Head:: Normocephalic, atraumatic. Neck: Trachea midline. Eyes: EOMI, Normal conjunctiva, No drainage no scleral icterus CARDIOVASCULAR: Tachycardia RESPIRATORY: No respiratory distress Back: Full range of motion. MUSCULOSKELETAL: Full range of motion of bilateral upper and lower extremities. GASTROINTESTINAL: Abdomen soft without rebound or guarding. NEUROLOGICAL: Alert and noted to person, place and time. No neurological deficits observed Psychiatric: Cooperative. Normal judgment Current Patient Data: Labs: Laboratory Tests Test 08/27/20 18:24 Glucose (Fingerstick) 403 mg/dL (70-99) H Vital Signs: Vital Signs Date Time Temp Pulse Resp B/P (MAP) Pulse Ox O2 Delivery O2 Flow Rate FiO2 08/27/20 18:13 98.4 121 20 147/91 (109) 97 Room Air 98.4 EKG: EKG: EKG performed at 1839 heart rate 114 tachycardia [] Radiology/Procedures: Radiology/Procedures: [] Impression: FINDINGS: Heart size is normal. No pericardial effusion. Strandy opacities at dependent portion lungs likely representing atelectasis. No pleural effusion. There is diffuse hepatic steatosis. Spleen, pancreas, and adrenals are unremarkable. Gallbladder surgically absent. No perinephric inflammation or hydronephrosis. No renal or ureteral calculi are identified. Bladder is partially distended and appears thin-walled. Prostate is not enlarged. Diffuse wall thickening involving the transverse colon. Remainder large and small bowel are unremarkable. No obstruction. No free intra-abdominal air or fluid. Abdominal aorta has a normal course and caliber. Abdominal vasculature is patent. No enlarged intra-abdominal lymph nodes are identified. No suspicious osseous lesions or acute fractures. IMPRESSION: Findings of colitis at the transverse colon favored be infectious or inflammatory in etiology. Colonoscopy posttreatment to ensure no underlying neoplasm is recommended. Course & Med Decision Making: Course & Med Decision Making Pertinent Labs and Imaging studies reviewed. (See chart for details) [] Josselin Disclaimer: Josselin Disclaimer: This electronic medical record was generated, in whole or in part, using a voice recognition dictation system. Departure Departure Impression: Primary Impression: Abdominal pain Additional Impression: Colitis Disposition: HOME / SELF CARE / HOMELESS Condition: STABLE Referrals: KARLO CUEVA MD (PCP) Patient Instructions: Colitis Scripts Ciprofloxacin Hcl (CIPROFLOXACIN HCL) 500 Mg Tablet 1 TAB PO BID, #20 TAB Prov: JANI LINK I DO 08/27/20 Ondansetron Hcl (ZOFRAN) 4 Mg Tablet 1 TAB PO Q6HRS, #20 TAB Prov: JANI LINK I DO 08/27/20 Metronidazole (FLAGYL) 500 Mg Tablet 1 TAB PO BID, #20 TAB Prov: JANI LINK I DO 08/27/20 JANI LINK I DO Aug 27, 2020 18:31
[2020-08-27 18:46] LABS: BASO # 0.1 x10^3/uL (0.0-0.2); BASO % 1 % (0-3); EOS # 0.1 x10^3/uL (0.0-0.7); EOS % 1 % (0-3); HEMATOCRIT 46.5 % (36.0-47.0); HEMOGLOBIN 15.7 g/dL (12.0-15.5); LYMPH # 2.6 x10^3/uL (1.0-4.8); LYMPH % 29 % (24-48); MEAN CORPUSCULAR HEMOGLOBIN 28 pg (25-35); MEAN CORPUSCULAR HGB CONC 34 g/dL (31-37); MEAN CORPUSCULAR VOLUME 83 fL (79-100); MONO # 0.6 x10^3/uL (0.0-1.1); MONO % 7 % (0-9); NEUT # 5.6 x10^3/uL (1.8-7.7); NEUT % 63 % (31-73); PLATELET COUNT 362 x10^3/uL (140-400); RED BLOOD COUNT 5.63 x10^6/uL (3.50-5.40); RED CELL DISTRIBUTION WIDTH 13.7 % (11.5-14.5); WHITE BLOOD COUNT 8.9 x10^3/uL (4.0-11.0)
[2020-08-27 18:57] LABS: CALCIUM 9.9 mg/dL (8.5-10.1); CREATININE 1.1 mg/dL (0.6-1.0); GFR 60.9; POTASSIUM 4.3 mmol/L (3.5-5.1)
[2020-08-27] MEDS ORDERED: IV NORMAL SALINE 1000ML BAG 1,000 ML IV ONE (19:00)
[2020-08-27] MEDS ORDERED: ONDANSETRON PF 4 MG/2 ML VIAL. IVP ONE (19:00)
[2020-08-27] MEDS ORDERED: KETOROLAC 30 MG/ML VIAL. IVP ONE (19:00)
[2020-08-27 19:03] LABS: ALBUMIN 4.4 g/dL (3.4-5.0); TOTAL BILIRUBIN 1.1 mg/dL (0.2-1.0); TOTAL PROTEIN 8.7 g/dL (6.4-8.2)
[2020-08-27] MEDS ORDERED: IOHEXOL 300 MG/ML 100ML VIAL. IV ONE (19:15)
--- NOTE | 2020-08-27 19:41 | RAD ---
Exam: CT of abdomen and pelvis with contrast INDICATION: Abdominal pain TECHNIQUE: Sequential axial images through the abdomen and pelvis obtained following the administrati on of 75 mL of Isovue-370 IV contrast. Sagittal and coronal reformatted images were reconstructed fro m the axial data and reviewed. Comparisons: 06/29/2014 FINDINGS: Heart size is normal. No pericardial effusion. Strandy opacities at dependent portion lungs likely re presenting atelectasis. No pleural effusion. There is diffuse hepatic steatosis. Spleen, pancreas, and adrenals are unremarkable. Gallbladder surg ically absent. No perinephric inflammation or hydronephrosis. No renal or ureteral calculi are identified. Bladder is partially distended and appears thin-walled. Prostate is not enlarged. Diffuse wall thickening involving the transverse colon. Remainder large and small bowel are unremarka ble. No obstruction. No free intra-abdominal air or fluid. Abdominal aorta has a normal course and caliber. Abdominal vasculature is patent. No enlarged intra-abdominal lymph nodes are identified. No suspicious osseous lesions or acute fractures. IMPRESSION: Findings of colitis at the transverse colon favored be infectious or inflammatory in etiology. Colono scopy posttreatment to ensure no underlying neoplasm is recommended. Exposure: One or more of the following in the visualized dose reduction techniques were utilized for this examination: 1. Automated exposure control 2. Adjustment of the MA and/or KV according to patient size 3. Use of iterative of reconstructive technique Electronically signed by: Terry Acosta MD (08/27/2020 7:39 PM) [facility]
[2020-08-27] MEDS ORDERED: CIPR250S2 PO (19:50)
[2020-08-27] MEDS ORDERED: ONDA4TAB7 PO (19:50)
[2020-08-27] MEDS ORDERED: METR500T PO (19:50)
[2020-08-27] MEDS ORDERED: CIPR500T2 PO (20:01)
[2020-08-27 22:34] VITALS: BP 115/73
== END 2020-08-27 22:56 | disposition home or self-care (01) ==
LOC: ER 17:19
DX: K52.9 Noninfective gastroenteritis and colitis, unspecified (principal); E11.9 Type 2 diabetes mellitus without complications; I10 Essential (primary) hypertension; Z90.49 Acquired absence of other specified parts of digestive tract; Z90.710 Acquired absence of both cervix and uterus; Z88.5 Allergy status to narcotic agent
CPT/HCPCS: 36415; 74177; 80053; 82962; 83690; 84484; 85025; 96361; 96374; 96375; 99285; J1885; J2405; J7030; Q9967